=== PATIENT | female | born 2000 | race Two or more races ===

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

== ENCOUNTER 2021-07-18 02:02 | Emergency (ER) | payer MEDICAID, OTHER ==
[~2021-07-18] VITALS: Ht 152.4 cm; Wt 61.7 kg
[2021-07-18] MEDS ORDERED: diphenhdrAMINE HCL 25 MG CAP PO ONE (02:30)
[2021-07-18 03:08] VITALS: BP 124/75
== END 2021-07-18 03:34 | disposition home or self-care (01) ==
LOC: ER 02:02
DX: T78.40XA Allergy, unspecified, initial encounter (principal); O26.893 Other specified pregnancy related conditions, third trimester; Z3A.29 29 weeks gestation of pregnancy; X58.XXXA Exposure to other specified factors, initial encounter

== ENCOUNTER 2021-08-13 21:43 | Observation (INO) | payer MEDICAID ==
[2021-08-13] MEDS ORDERED: PREN-96 OR (22:43)
== END 2021-08-13 22:52 | disposition home or self-care (01) ==
LOC: LDRP 21:43
PROVIDERS: ADMIT Obstetrics & Gynecology; ATTEND Obstetrics & Gynecology
DX: O26.893 Other specified pregnancy related conditions, third trimester (principal); R10.2 Pelvic and perineal pain; R10.30 Lower abdominal pain, unspecified; Z3A.32 32 weeks gestation of pregnancy; Z90.721 Acquired absence of ovaries, unilateral
CPT/HCPCS: 59025; 81002; G0378; G0379

== ENCOUNTER 2021-09-02 19:22 | Emergency (ER) | payer MEDICAID ==
[~2021-09-02] VITALS: Ht 152.4 cm; Wt 67.6 kg
[~2021-09-02 19:22] MED LIST: PREN-96 OR
[2021-09-02 19:31] VITALS: BP 124/86
== END 2021-09-03 02:23 | disposition left against medical advice (07) ==
LOC: ER 19:26
DX: Z48.00 Encounter for change or removal of nonsurgical wound dressing (principal); Z53.21 Procedure and treatment not carried out due to patient leaving prior to being seen by health care provider

== ENCOUNTER 2021-10-24 21:37 | Emergency (ER) | payer MEDICAID ==
[~2021-10-24] VITALS: Ht 152.4 cm; Wt 60.8 kg
[2021-10-24 21:38] VITALS: BP 117/73
== END 2021-10-25 00:17 | disposition home or self-care (01) ==
LOC: ER 21:37
DX: M77.8 Other enthesopathies, not elsewhere classified (principal); Z79.899 Other long term (current) drug therapy
CPT/HCPCS: 73130; 81025

== ENCOUNTER 2022-03-27 02:27 | Emergency (ER) | payer MEDICAID ==
[~2022-03-27] VITALS: Ht 167.6 cm; Wt 126.0 kg
[2022-03-27 02:37] VITALS: BP 117/80
== END 2022-03-27 03:45 | disposition left against medical advice (07) ==
LOC: EDUNIT# 02:27 → EDBD 02:27 → ER 02:27
DX: M54.50 Low back pain, unspecified (principal); R51.9 Headache, unspecified; M25.521 Pain in right elbow; Z53.21 Procedure and treatment not carried out due to patient leaving prior to being seen by health care provider; V89.2XXA Person injured in unspecified motor-vehicle accident, traffic, initial encounter; Y93.89 Activity, other specified; Y92.89 Other specified places as the place of occurrence of the external cause; Y99.8 Other external cause status

== ENCOUNTER 2024-08-05 01:45 | Emergency (ER) | payer MEDICAID ==
[~2024-08-05] VITALS: Ht 152.4 cm; Wt 67.0 kg
[2024-08-05 02:06] VITALS: BP 120/80; PULSE 105; RESP 16
[2024-08-05] MEDS ORDERED: CLIN1CAP70 PO (03:01)
--- NOTE | 2024-08-05 03:01 | ED.PDOC ---
History of Present Illness(SKN HPI Comments 24-year-old female presents to ER for wound check. Patient reports she noticed "red painful bumps" to left arm pit, lower abdomen and left thigh x 3 days and presents to ER today for wound check. Patient states others in her same household have been experiencing similar symptoms, denying any known insect bites/hx of bed bugs. She reports 10/10 pain localized to keren of "red bumps". Denies use medications for current symptoms and states she did notice mild yellow-red drainage to bump on left thigh. Patient presents to ER ambulatory on arrival, with steady gait, in no distress. Denies fever, body aches, chills, nausea/vomiting, headache or any further symptoms/complaints Chief Complaint: Abscess Time Seen by MD: 02:11 Primary Care Provider: NONE History of Present Illness: Nurses Notes, Medications, Allergies Allergies: Coded Allergies: NO KNOWN ALLERGIES (Unverified , 04/20/15) Home Meds Active Scripts Clindamycin Hcl (Clindamycin Hcl) 300 Mg Cap, 1 CAP PO TID for 7 Days, #21 CAP 0 Refills Prov:ROYER CASTLE 08/05/24 Reported Medications Vit W/ Ferrous Fumara ( One Daily) Daily Tab, 1 OR, TAB 08/13/21 Information Source: Patient Mode of Arrival: Ambulatory Tetanus: UTD Past Medical History PAST MEDICAL HISTORY: Denies Surgical History: Appendectomy TASTE TESTER History: Denies all TASTE TESTER Hx Family History Family History: Unknown Social History Smoker: Non-Smoker Alcohol: Denies ETOH Use Drugs: Denies Drug Use Lives In: Home Constitutional: denies: chills, diaphoresis, fatigue, fever, malaise, sweats, weakness, others EENTM: denies: blurred vision, double vision, ear bleeding, ear discharge, ear drainage, ear pain, ear ringing, eye pain, eye redness, hearing loss, mouth pain, mouth swelling, nasal discharge, nose bleeding, nose congestion, nose pain, photophobia, tearing, throat pain, throat swelling, voice changes, others Respiratory: denies: cough, hemoptysis, orthopnea, SOB at rest, shortness of breath, SOB with excertion, stridor, wheezing, others Cardiovascular: denies: chest pain, dizzy spells, diaphoresis, Dyspnea on exertion, edema, irregular heart beat, left arm pain, lightheadedness, palpitations, PND, syncope, others Gastrointestinal: denies: abdomen distended, abdominal pain, blood streaked bowels, constipated, diarrhea, dysphagia, difficulty swallowing, hematemesis, melena, nausea, poor appetite, poor fluid intake, rectal bleeding, rectal pain, vomiting, others Genitourinary: denies: abnormal vagina bleeding, burning, dyspareunia, dysuria, flank pain, frequency, hematuria, incontinence, pain, , vagina discharge, urgency, others Neurological: denies: dizziness, fainting, headache, left sided numbness, left sided weakness, numbness, paresthesia, pre-existing deficit, right sided numbness, right sided weakness, seizure, speech problems, tingling, tremors, weakness, others Musculoskeletal: denies: back pain, gout, joint pain, joint swelling, muscle pain, muscle stiffness, neck pain, others Integumetry: reports: others (As stated in HPI) Allergic/Immunocompromised: denies: Difficulty Healing, Frequent Infections, Hives, Itching, others Hematologic/Lymphatic: denies: anemia, blood clots, easy bleeding, easy bruising, swollen glands, others Endocrine: denies: excessive hunger, excessive sweating, excessive thirst, excessive urination, flushing, intolerance to cold, intolerance to heat, unexplained weight gain, unexplained weight loss, others Psychiatric: denies: anxiety, bipolar disorder, depression, hopeless, panic disorder, schizophrenia, sleepless, suicidal, others Physical Exam General Appearance: No Apparent Distress HEENT: PERRL/EOMI, Pharynx Normal Neck: Full Range of Motion, Non-Tender, Normal Respiratory: Chest Non-Tender, Lungs Clear, No Accessory Muscle Use, No Respiratory Distress, Normal Breath Sounds Cardiovascular: No Murmur, No Gallop, Regular Rate/Rhythm Breast Exam: Deferred Gastrointestinal: Non Tender, No Pulsatile Mass, Soft Genitalia: Deferred Pelvic: Deferred Rectal: Deferred Extremities: Normal capillary refill, Normal range of motion Neurologic: Alert, No Motor Deficits, Normal Affect, Normal Mood, No Sensory Deficits Cerebellar Function: Normal Reflexes: Normal Skin: Dry, Warm, Other (1 cm erythemic papules noted to lower abdomen, left axilla and left thigh with mild associated swelling. No red streaking/drai nage/fluctuance/foreign body noted. Gait intact without abnormality) Peripheral Pulses: 2+ femoral (R), 2+ femoral (L), 2+ dorsalis pedis (R), 2+ dorsalis pedis (L), 2+ Radial (R), 2+ Radial (L), 2+ Brachial (R), 2+ Brachial (L) Lymphatic: No Adenopathy Was a procedure done? Was a procedure done?: No Sedation Sedation?: No Differential Diagnosis (INTG) Differential Diagnosis: Abrasion Differential Diagnosis: Abscess Differential Diagnosis: Retained Foreign Body X-Ray, Labs, Meds, VS Vital Signs Date Time Temp Pulse Resp B/P (MAP) Pulse Ox O2 Delivery O2 Flow Rate FiO2 08/05/24 02:06 98.5 105 16 120/80 (93) 98 Rocephin 1 g IM ordered Wound care/cleaning discussed and advised Advised to follow up with PCP in 1-2 days Patient verbalized understanding and agreeable with current plan of care Advised to return to ER immediately if symptoms worsen Time of 1ST Reevaluation: 02:44 Reevaluation 1ST: N/A Patient Education/Counseling: Diagnosis, Treatment, Prognosis, Need For Follow Up Family Education/Counseling: No Family Present Departure 1 Departure Time of Disposition: 03:00 Impression: Primary Impression: Insect bite Qualified Codes: W57.XXXA - Bitten or stung by nonvenomous insect and other nonvenomous arthropods, initial encounter Disposition: 01 HOME / SELF CARE / HOMELESS Condition: Stable e-Prescriptions Clindamycin Hcl (Clindamycin Hcl) 300 Mg Cap 1 CAP PO TID for 7 Days, #21 CAP 0 Refills Prov: ROYER CASTLE 08/05/24 Discharged With: Self Critical Care Note Critical Care Time?: No Stability Stability form required: No Heart Score Heart Score: Heart Score Response (Comments) Value History N/A 0 EKG N/A 0 Age N/A 0 Risk Factors N/A 0 Troponin N/A 0 Total 0 ROYER CASTLE Aug 05, 2024 03:01
[2024-08-05] MEDS: cefTRIAXone SOD 1,000 MG VL IM ONE (03:47)
[2024-08-05] MEDS: ACETAMINOPHEN 325 MG TAB PO ONE (03:47)
[2024-08-05 03:56] VITALS: O2SAT 98
== END 2024-08-05 05:15 | disposition home or self-care (01) ==
LOC: ER 01:45
DX: S40.862A Insect bite (nonvenomous) of left upper arm, initial encounter (principal); S70.362A Insect bite (nonvenomous), left thigh, initial encounter; S30.861A Insect bite (nonvenomous) of abdominal wall, initial encounter; Z90.49 Acquired absence of other specified parts of digestive tract; W57.XXXA Bitten or stung by nonvenomous insect and other nonvenomous arthropods, initial encounter; Y93.89 Activity, other specified; Y92.89 Other specified places as the place of occurrence of the external cause; Y99.8 Other external cause status
CPT/HCPCS: 96372; 99283; J0696